=== PATIENT | male | born 1975 | race African-American/Black ===

== ENCOUNTER 2019-04-01 16:11 | Inpatient (IN) | payer MEDICAID, OTHER ==
[~2019-04-01] VITALS: Ht 167.6 cm; Wt 134.3 kg
[~2019-04-01 16:11] MED LIST: LIDOCAINE HCL/PF 1% 2ML VIAL ONE; SULF1TAB48 PO; rocephin IV
[2019-04-01] MEDS ORDERED: ACETAMINOPHEN 650MG SUPP PR STA (16:42)
[2019-04-01] MEDS ORDERED: HYDROCORTISONE SOD SUCCINATE 100 MG/2 ML VIAL IV ONE (16:45)
[2019-04-01] MEDS ORDERED: PIPERACILLIN/TAZ 3.375G PREMIX 50 ML IV ONE (16:45)
[2019-04-01] MEDS ORDERED: SODIUM CHLORIDE 0.9% 1000ML BAG (SEPSIS BOLUS) IV ONE (16:45)
[2019-04-01] MEDS ORDERED: VANCOMYCIN 1 G PREMIX 200 ML IV ONE (16:45)
[2019-04-01 17:06] LABS: BG BASE EXCESS -6.4 mmol/L (-2.0-2.0); BG DEOXYHEMOGLOBIN 4.9 % (0.0-5.0); BG FRACTION INSPIRED OXYGEN 21; BG METHEMOGLOBIN 0.2 % (0.0-1.5); BG OXYHEMOGLOBIN 93.9 % (94.0-97.0); BG PCO2 28.2 mmHg (35.0-45.0); BG PH 7.397 (7.350-7.450); BG PO2 77.6 mmHg (75.0-100.0); BG SAMPLE SITE RIGHT RADIAL; BG TOTAL HEMOGLOBIN 13.7 g/dL (12.0-18.0); BG VENT MODE ROOM AIR
[2019-04-01 17:16] LABS: HEMATOCRIT. 37.8 % (42.0-52.0); HEMOGLOBIN. 12.3 g/dL (14.0-18.0); MEAN CORPUSCULAR HEMOGLOBIN 31.6 pg (28.0-32.0); MEAN PLATELET VOLUME 10.7 fl (7.4-10.4); PLATELET 152 x1000/uL (130-400); RED CELL DISTRIBUTION WIDTH 14.7 % (11.6-14.6)
[2019-04-01 17:20] LABS: CHLORIDE 95 mEq/L (98-107)
[2019-04-01 17:21] LABS: INR 1.3; PROTHROMBIN TIME 13.7 sec (9.6-11.0)
[2019-04-01 17:38] LABS: PLATELET ESTIMATE NORMAL
[2019-04-01] MEDS ORDERED: INSULIN REGULAR (DRIP) 100 UNITS in SODIUM CHLORIDE 0.9% 99 ML IV SCH (19:00)
[2019-04-01] MEDS ORDERED: NOREPINEPHRINE 4 MG in DEXT 5% WATER 246 ML IV ONE (20:15)
[2019-04-01] MEDS ORDERED: PIPERACILLIN/TAZ 3.375G PREMIX 50 ML IV SCH (20:45)
[2019-04-01] MEDS ORDERED: NOREPINEPHRINE 4MG/250ML PMX 250 ML IV SCH ×2 (20:45)
[2019-04-01] MEDS ORDERED: ONDANSETRON HCL 4MG/2ML INJ IV PRN (20:45)
[2019-04-01 21:45] LABS: CLARITY URINE CLOUDY (CLEAR); COLOR URINE DARK YELLOW (YELLOW); KETONES URINE NEGATIVE (NEGATIVE); LEUKOCYTE ESTERASE URINE 2+ (NEGATIVE); NITRITE URINE NEGATIVE (NEGATIVE); OCCULT BLOOD URINE 2+ (NEGATIVE); PH URINE 5.5 (4.5-8.0); PROTEIN URINE 2+ (NEGATIVE); SPECIFIC GRAVITY URINE 1.019 (1.005-1.030)
[2019-04-01 23:00] VITALS: BP_SYST 122; BP_DIAS 68; BP_DIAS 72
[2019-04-01 23:15] VITALS: BP 90/78
[2019-04-01] MEDS: SODIUM CHLORIDE 0.9% 1,000 ML IV SCH (23:28)
[2019-04-01 23:30] VITALS: BP 94/67
[2019-04-02] VITALS (78 sets, daily range): BP systolic 94–147; BP diastolic 30–99
[2019-04-02] MEDS: PIPERACILLIN/TAZ 3.375G PREMIX 50 ML IV SCH ×3 (00:21→11:06)
[2019-04-02] MEDS ORDERED: INSULIN REGULAR (DRIP) 100 UNITS in SODIUM CHLORIDE 0.9% 99 ML IV PRN (01:15)
[2019-04-02] MEDS ORDERED: DEXTROSE 50% WATER 50ML SYRINGE IV PRN ×2 (01:15)
[2019-04-02] MEDS ORDERED: VANCOMYCIN 1 G PREMIX 200 ML IV NR (02:00)
[2019-04-02] MEDS: INSULIN REGULAR (DRIP) 100 UNITS in SODIUM CHLORIDE 0.9% 100 ML IV SCH ×4 (02:08→23:51)
[2019-04-02] MEDS: BLOOD SUGAR DIAGNOSTIC STRIP TEST SCH ×22 (02:14→23:04)
[2019-04-02] MEDS: SODIUM CHLORIDE 0.9% 1,000 ML IV SCH (04:12)
[2019-04-02 05:12] LABS: HEMATOCRIT. 36.1 % (42.0-52.0); HEMOGLOBIN. 11.9 g/dL (14.0-18.0); MEAN CORPUSCULAR HEMOGLOBIN 31.4 pg (28.0-32.0); MEAN CORPUSCULAR VOLUME 95.2 fL (80.0-94.0); MEAN PLATELET VOLUME 10.9 fl (7.4-10.4); PLATELET 110 x1000/uL (130-400); RED BLOOD CELL COUNT 3.79 mill/uL (4.7-6.1); RED CELL DISTRIBUTION WIDTH 14.7 % (11.6-14.6)
[2019-04-02] MEDS ORDERED: MORPHINE SULFATE 2 MG/ML CPJ (NOT FOR IM USE) IV PRN (08:15)
[2019-04-02] MEDS ORDERED: ACETAMINOPHEN 650MG SUPP PR PRN (08:15)
[2019-04-02 08:55] LABS: PLATELET ESTIMATE DECREASED
[2019-04-02] MEDS ORDERED: POTASSIUM CHLORIDE INJ 40 MEQ in DEXT 5% WATER 250 ML IV NR (09:00)
[2019-04-02] MEDS: SODIUM CHL 0.45% + KCL 20MEQ/L 1,000 ML IV SCH ×3 (09:21→23:04)
[2019-04-02] MEDS: FAMOTIDINE 20MG/2ML VIAL IV SCH (09:22)
[2019-04-02] MEDS: ENOXAPARIN 40MG/0.4ML SYR SUBCUT SCH ×2 (10:06→21:00)
[2019-04-02 10:22] LABS: PHOSPHORUS 0.8 mg/dL (2.5-4.9)
[2019-04-02] MEDS ORDERED: LORAZEPAM 2MG/ML CPJ IV PRN (12:00)
[2019-04-02] MEDS ORDERED: MAGNESIUM 4 G PREMIX 100 ML IV SCH (13:00)
[2019-04-02] MEDS ORDERED: POTASSIUM PHOS,M-BASIC-D-BASIC 30 MMOL in DEXT 5% WATER 500 ML IV NR (15:00)
[2019-04-02] MEDS ORDERED: CEFEPIME 2,000 MG in DEXT 5% WATER 100 ML IV SCH (18:00)
[2019-04-03] VITALS (79 sets, daily range): BP systolic 92–154; BP diastolic 49–99
[2019-04-03] MEDS: BLOOD SUGAR DIAGNOSTIC STRIP TEST SCH ×24 (00:15→23:06)
[2019-04-03] MEDS: DEXT 5%/0.45% NACL KCL 20MEQ/L 1,000 ML IV SCH ×3 (02:03→18:15)
[2019-04-03] MEDS ORDERED: SENN-170 MT (04:03)
[2019-04-03] MEDS ORDERED: DOCU250C69 MT (04:03)
[2019-04-03] MEDS ORDERED: FAMO20TA8 MT (04:03)
[2019-04-03] MEDS ORDERED: PHEN100C4 PO (04:03)
[2019-04-03] MEDS ORDERED: SERT50TA MT (04:03)
[2019-04-03] MEDS ORDERED: [UNRECOGNIZED DRUG - OTHER] MT (04:03)
[2019-04-03] MEDS ORDERED: METO25TA6 MT (04:03)
[2019-04-03] MEDS ORDERED: MULT1TAB63 MT (04:03)
[2019-04-03] MEDS ORDERED: CALC-959 MT (04:03)
[2019-04-03] MEDS ORDERED: DEXT1CAP3 PO (04:03)
[2019-04-03 05:57] LABS: HEMATOCRIT. 31.9 % (42.0-52.0); MEAN CORPUSCULAR HEMOGLOBIN 31.3 pg (28.0-32.0); MEAN CORPUSCULAR VOLUME 91.1 fL (80.0-94.0); MEAN PLATELET VOLUME 10.5 fl (7.4-10.4); PLATELET 96 x1000/uL (130-400); RED CELL DISTRIBUTION WIDTH 14.5 % (11.6-14.6)
[2019-04-03 06:02] LABS: CHLORIDE 115 mEq/L (98-107)
[2019-04-03 06:14] LABS: PHOSPHORUS 1.9 mg/dL (2.5-4.9)
[2019-04-03 06:18] LABS: CREATINE KINASE 66 IU/L (39-308)
[2019-04-03] MEDS: ENOXAPARIN 40MG/0.4ML SYR SUBCUT SCH ×2 (09:00→21:00)
[2019-04-03] MEDS: FAMOTIDINE 20MG/2ML VIAL IV SCH (09:24)
[2019-04-03] MEDS ORDERED: SODIUM BICARBONATE 8.4% 1 MEQ/ML 50ML SYR IV SCH (10:00)
[2019-04-03 11:00] LABS: PLATELET ESTIMATE DECREASED
[2019-04-03] MEDS ORDERED: POTASSIUM PHOS,M-BASIC-D-BASIC 20 MMOL in DEXT 5% WATER 243.3333 ML IV SCH (11:00)
[2019-04-03] MEDS: INSULIN REGULAR (DRIP) 100 UNITS in SODIUM CHLORIDE 0.9% 100 ML IV SCH (11:14)
[2019-04-03] MEDS: MEROPENEM 500 MG in SODIUM CHLORIDE 0.9% 50 ML IV SCH ×2 (15:59→21:41)
[2019-04-04] VITALS (51 sets, daily range): BP systolic 66–164; BP diastolic 52–142
[2019-04-04] MEDS: BLOOD SUGAR DIAGNOSTIC STRIP TEST SCH ×13 (00:36→21:11)
[2019-04-04] MEDS: INSULIN REGULAR (DRIP) 100 UNITS in SODIUM CHLORIDE 0.9% 100 ML IV SCH (01:17)
[2019-04-04] MEDS: DEXT 5%/0.45% NACL KCL 20MEQ/L 1,000 ML IV SCH ×2 (01:55→11:10)
[2019-04-04] MEDS: MEROPENEM 500 MG in SODIUM CHLORIDE 0.9% 50 ML IV SCH ×3 (05:15→22:16)
[2019-04-04 05:38] LABS: HEMATOCRIT. 29.6 % (42.0-52.0); MEAN CORPUSCULAR HEMOGLOBIN 31.4 pg (28.0-32.0); MEAN CORPUSCULAR VOLUME 92.7 fL (80.0-94.0); PLATELET 88 x1000/uL (130-400); RED BLOOD CELL COUNT 3.19 mill/uL (4.7-6.1)
[2019-04-04 05:50] LABS: CHLORIDE 120 mEq/L (98-107)
[2019-04-04 05:58] LABS: PHOSPHORUS 2.2 mg/dL (2.5-4.9)
[2019-04-04 08:49] LABS: PLATELET ESTIMATE DECREASED
[2019-04-04] MEDS: ENOXAPARIN 40MG/0.4ML SYR SUBCUT SCH ×2 (09:00→09:17)
[2019-04-04] MEDS: FAMOTIDINE 20MG/2ML VIAL IV SCH (09:17)
[2019-04-04] MEDS ORDERED: DEXTROSE 50% WATER 50ML SYRINGE IV PRN (09:45)
[2019-04-04] MEDS ORDERED: POTASSIUM PHOS,M-BASIC-D-BASIC 15 MMOL in DEXT 5% WATER 245 ML IV SCH (11:00)
[2019-04-04] MEDS: INSULIN LISPRO 100 UNITS/ML SUBCUT SCH ×3 (11:13→21:16)
[2019-04-04] MEDS: INSULIN GLARGINE UD 100 UNITS/ML SYR SUBCUT SCH ×2 (11:13→21:16)
[2019-04-04] MEDS: DEXTROSE 5% WATER 1,000 ML IV SCH (15:24)
[2019-04-05] VITALS (13 sets, daily range): BP systolic 130–148; BP diastolic 63–97
[2019-04-05] MEDS: MEROPENEM 500 MG in SODIUM CHLORIDE 0.9% 50 ML IV SCH ×3 (06:05→21:44)
[2019-04-05] MEDS: DEXTROSE 5% WATER 1,000 ML IV SCH ×3 (06:07→21:28)
[2019-04-05] MEDS: BLOOD SUGAR DIAGNOSTIC STRIP TEST SCH ×4 (06:59→21:27)
[2019-04-05 07:14] LABS: HEMATOCRIT. 27.2 % (42.0-52.0); HEMOGLOBIN. 9.3 g/dL (14.0-18.0); MEAN CORPUSCULAR HEMOGLOBIN 31.4 pg (28.0-32.0); MEAN CORPUSCULAR VOLUME 92.2 fL (80.0-94.0); MEAN PLATELET VOLUME 10.4 fl (7.4-10.4); PLATELET 100 x1000/uL (130-400); RED BLOOD CELL COUNT 2.95 mill/uL (4.7-6.1)
[2019-04-05 07:17] LABS: PHOSPHORUS 2.9 mg/dL (2.5-4.9)
[2019-04-05] MEDS: FAMOTIDINE 20MG/2ML VIAL IV SCH (08:05)
[2019-04-05] MEDS: INSULIN LISPRO 100 UNITS/ML SUBCUT SCH ×4 (08:06→21:00)
[2019-04-05] MEDS: INSULIN GLARGINE UD 100 UNITS/ML SYR SUBCUT SCH ×2 (10:10→21:45)
[2019-04-05 16:41] LABS: TOTAL IRON BINDING CAPACITY 84 ug/dL (250-450)
[2019-04-05 18:47] LABS: FOLIC ACID (FOLATE) SERUM 3.8 ng/mL (>5.38)
[2019-04-05 22:48] LABS: PLATELET ESTIMATE DECREASED
[2019-04-06] VITALS (7 sets, daily range): BP systolic 110–158; BP diastolic 59–86
[2019-04-06] MEDS: ACETAMINOPHEN 325MG TABLET PO PRN ×2 (02:58→21:49)
[2019-04-06] MEDS: MEROPENEM 500 MG in SODIUM CHLORIDE 0.9% 50 ML IV SCH (05:45)
[2019-04-06] MEDS: BLOOD SUGAR DIAGNOSTIC STRIP TEST SCH ×4 (06:48→21:05)
[2019-04-06] MEDS: INSULIN LISPRO 100 UNITS/ML SUBCUT SCH ×4 (06:48→21:05)
[2019-04-06] MEDS: FAMOTIDINE 20MG/2ML VIAL IV SCH (09:15)
[2019-04-06] MEDS: INSULIN GLARGINE UD 100 UNITS/ML SYR SUBCUT SCH ×2 (09:31→21:05)
[2019-04-06 10:09] LABS: PHOSPHORUS 3.8 mg/dL (2.5-4.9)
[2019-04-06 10:10] LABS: BASOPHILS % 0.2 % (0.0-2.0); EOSINOPHILS % 0.4 % (0.0-5.0); HEMOGLOBIN. 8.7 g/dL (14.0-18.0); LYMPHOCYTES % 15.8 % (20.0-50.0); MEAN CORPUSCULAR HEMOGLOBIN 31.2 pg (28.0-32.0); MEAN PLATELET VOLUME 10.2 fl (7.4-10.4); MONOCYTES % 13.8 % (2.0-8.0); NEUTROPHILS % 69.8 % (40.0-76.0); PLATELET 141 x1000/uL (130-400); RED CELL DISTRIBUTION WIDTH 14.9 % (11.6-14.6)
[2019-04-06] MEDS: MEROPENEM 1000MG in NORMAL SALINE 100ML IV SCH ×2 (14:31→21:04)
[2019-04-06] MEDS: DEXTROSE 5% WATER 1,000 ML IV SCH (17:50)
[2019-04-07] VITALS: BP 106/52
[2019-04-07 04:00] VITALS: BP 111/66
[2019-04-07] MEDS: BLOOD SUGAR DIAGNOSTIC STRIP TEST SCH ×4 (05:57→21:00)
[2019-04-07] MEDS: MEROPENEM 1000MG in NORMAL SALINE 100ML IV SCH ×3 (06:07→21:26)
[2019-04-07 07:08] LABS: HEMATOCRIT. 25.8 % (42.0-52.0); HEMOGLOBIN. 8.5 g/dL (14.0-18.0); MEAN CORPUSCULAR VOLUME 93.6 fL (80.0-94.0); MEAN PLATELET VOLUME 10.3 fl (7.4-10.4); PLATELET 186 x1000/uL (130-400); RED BLOOD CELL COUNT 2.76 mill/uL (4.7-6.1); RED CELL DISTRIBUTION WIDTH 14.9 % (11.6-14.6)
[2019-04-07] MEDS: INSULIN LISPRO 100 UNITS/ML SUBCUT SCH ×4 (07:40→21:27)
[2019-04-07 08:32] LABS: PHOSPHORUS 3.9 mg/dL (2.5-4.9)
[2019-04-07] MEDS: FAMOTIDINE 20MG TABLET PO SCH (09:21)
[2019-04-07] MEDS: DEXTROSE 5% WATER 1,000 ML IV SCH (09:21)
[2019-04-07] MEDS: INSULIN GLARGINE UD 100 UNITS/ML SYR SUBCUT SCH ×2 (09:22→21:26)
[2019-04-07] MEDS ORDERED: BISACODYL 10MG SUPP PR PRN (11:30)
[2019-04-07] MEDS ORDERED: MAGNESIUM HYDROXIDE 400MG/5ML 30ML UDC PO PRN (11:30)
[2019-04-07 12:00] VITALS: BP 136/84
[2019-04-07 12:24] LABS: HEPATITIS B SURFACE ANTIGEN NEGATIVE
[2019-04-07 12:54] LABS: HEPATITIS A AB IGM NEGATIVE (NEGATIVE)
[2019-04-07 15:54] LABS: PLATELET ESTIMATE NORMAL
[2019-04-07 16:00] VITALS: BP 126/81
[2019-04-07] MEDS: DOCUSATE SODIUM 100MG CAPSULE PO SCH (17:24)
[2019-04-07] MEDS ORDERED: POLYETHYLENE GLYCOL 3350 (17GM) 1 DOSE PACK PO NR (17:45)
[2019-04-07 20:00] VITALS: BP 116/86
[2019-04-07] MEDS: ACETAMINOPHEN 325MG TABLET PO PRN (21:25)
[2019-04-08] VITALS: BP 133/72
[2019-04-08] MEDS: DEXTROSE 5% WATER 1,000 ML IV SCH ×2 (00:22→10:20)
[2019-04-08 04:00] VITALS: BP 121/84
[2019-04-08 05:16] LABS: HIV SCREEN 4G Non Reactive (Non Reactive)
[2019-04-08] MEDS: MEROPENEM 1000MG in NORMAL SALINE 100ML IV SCH ×3 (05:42→21:30)
[2019-04-08] MEDS: BLOOD SUGAR DIAGNOSTIC STRIP TEST SCH ×4 (06:22→20:34)
[2019-04-08] MEDS: INSULIN LISPRO 100 UNITS/ML SUBCUT SCH ×4 (06:22→20:34)
[2019-04-08 06:27] LABS: PHOSPHORUS 4.3 mg/dL (2.5-4.9)
[2019-04-08 06:28] LABS: HEMOGLOBIN. 8.4 g/dL (14.0-18.0); MEAN CORPUSCULAR HEMOGLOBIN 31.2 pg (28.0-32.0); MEAN CORPUSCULAR VOLUME 93.1 fL (80.0-94.0); MEAN PLATELET VOLUME 9.8 fl (7.4-10.4); PLATELET 263 x1000/uL (130-400); RED BLOOD CELL COUNT 2.68 mill/uL (4.7-6.1); RED CELL DISTRIBUTION WIDTH 14.3 % (11.6-14.6)
[2019-04-08 08:00] VITALS: BP 130/70
[2019-04-08] MEDS: DOCUSATE SODIUM 100MG CAPSULE PO SCH ×2 (09:00→17:00)
[2019-04-08] MEDS: FAMOTIDINE 20MG TABLET PO SCH (09:00)
[2019-04-08] MEDS: INSULIN GLARGINE UD 100 UNITS/ML SYR SUBCUT SCH ×2 (10:04→21:32)
[2019-04-08] MEDS ORDERED: IOPAMIDOL 20 ML VIAL IT ONE (12:51)
[2019-04-08] MEDS ORDERED: MIDAZOLAM HCL 2 MG/2 ML VIAL ONE (13:00)
[2019-04-08] MEDS ORDERED: PROPOFOL 200MG/20ML VIAL IV ONE (13:00)
[2019-04-08] MEDS ORDERED: FENTANYL CITRATE/PF 50MCG/ML 2ML VIAL ONE ×2 (13:15→13:37)
[2019-04-08] MEDS ORDERED: ONDANSETRON HCL 4MG/2ML INJ ONE (13:44)
[2019-04-08] MEDS ORDERED: METOCLOPRAMIDE HCL 10MG/2ML VIAL ONE (13:44)
[2019-04-08] MEDS ORDERED: SODIUM CHLORIDE 0.9% 1,000 ML IV ONE (13:58)
[2019-04-08] MEDS ORDERED: ONDANSETRON HCL 4MG/2ML INJ IV PRN (14:00)
[2019-04-08] MEDS ORDERED: HYDROMORPHONE HCL/PF 2MG/ML CPJ IV PRN (14:00)
[2019-04-08 16:30] VITALS: BP 160/89
[2019-04-08 16:57] LABS: PLATELET ESTIMATE NORMAL
[2019-04-08 20:00] VITALS: BP 128/67
[2019-04-09] VITALS: BP 113/63
[2019-04-09 04:00] VITALS: BP 156/65
[2019-04-09] MEDS: MEROPENEM 1000MG in NORMAL SALINE 100ML IV SCH ×3 (05:44→22:14)
[2019-04-09] MEDS: DEXTROSE 5% WATER 1,000 ML IV SCH ×2 (05:45→12:55)
[2019-04-09 06:14] LABS: HEMATOCRIT. 25.3 % (42.0-52.0); HEMOGLOBIN. 8.6 g/dL (14.0-18.0); MEAN CORPUSCULAR HEMOGLOBIN 31.5 pg (28.0-32.0); MEAN CORPUSCULAR VOLUME 92.7 fL (80.0-94.0); MEAN PLATELET VOLUME 9.4 fl (7.4-10.4); PLATELET 331 x1000/uL (130-400); RED BLOOD CELL COUNT 2.72 mill/uL (4.7-6.1); RED CELL DISTRIBUTION WIDTH 14.4 % (11.6-14.6)
[2019-04-09 06:35] LABS: CHLORIDE 113 mEq/L (98-107)
[2019-04-09 06:44] LABS: PHOSPHORUS 4.7 mg/dL (2.5-4.9)
[2019-04-09] MEDS: BLOOD SUGAR DIAGNOSTIC STRIP TEST SCH ×4 (07:04→21:00)
[2019-04-09] MEDS: INSULIN LISPRO 100 UNITS/ML SUBCUT SCH ×4 (07:04→21:00)
[2019-04-09 09:00] VITALS: BP 124/66
[2019-04-09] MEDS: DOCUSATE SODIUM 100MG CAPSULE PO SCH ×2 (09:38→17:00)
[2019-04-09] MEDS: FAMOTIDINE 20MG TABLET PO SCH (09:38)
[2019-04-09] MEDS: INSULIN GLARGINE UD 100 UNITS/ML SYR SUBCUT SCH ×2 (09:40→22:15)
[2019-04-09 10:31] LABS: PLATELET ESTIMATE NORMAL
[2019-04-09] MEDS ORDERED: SODIUM POLYSTYRENE SULFONATE 15 G/60 ML BOT PO NR (12:00)
[2019-04-09 12:43] VITALS: BP 126/76
[2019-04-09 17:30] VITALS: BP 120/68
[2019-04-10] VITALS: BP 128/80
[2019-04-10] MEDS: DEXTROSE 5% WATER 1,000 ML IV SCH ×2 (03:09→18:29)
[2019-04-10 04:00] VITALS: BP 129/71
[2019-04-10 05:54] LABS: CHLORIDE 112 mEq/L (98-107)
[2019-04-10 06:02] LABS: HEMATOCRIT. 24.3 % (42.0-52.0); HEMOGLOBIN. 8.1 g/dL (14.0-18.0); MEAN CORPUSCULAR HEMOGLOBIN 31.1 pg (28.0-32.0); MEAN CORPUSCULAR VOLUME 93.5 fL (80.0-94.0); MEAN PLATELET VOLUME 9.3 fl (7.4-10.4); PLATELET 373 x1000/uL (130-400); RED CELL DISTRIBUTION WIDTH 14.1 % (11.6-14.6)
[2019-04-10 06:05] LABS: PHOSPHORUS 4.7 mg/dL (2.5-4.9)
[2019-04-10] MEDS: MEROPENEM 1000MG in NORMAL SALINE 100ML IV SCH ×3 (06:06→21:19)
[2019-04-10] MEDS: BLOOD SUGAR DIAGNOSTIC STRIP TEST SCH ×4 (06:22→21:00)
[2019-04-10] MEDS: INSULIN LISPRO 100 UNITS/ML SUBCUT SCH ×4 (06:22→21:00)
[2019-04-10 08:00] VITALS: BP 124/69
[2019-04-10] MEDS: DOCUSATE SODIUM 100MG CAPSULE PO SCH ×2 (09:46→17:00)
[2019-04-10] MEDS: FAMOTIDINE 20MG TABLET PO SCH (09:46)
[2019-04-10] MEDS: INSULIN GLARGINE UD 100 UNITS/ML SYR SUBCUT SCH ×2 (11:13→21:24)
[2019-04-10 12:00] VITALS: BP 108/62
[2019-04-10 13:18] LABS: PLATELET ESTIMATE NORMAL
[2019-04-10 16:00] VITALS: BP 109/67
[2019-04-10 16:37] LABS: CLARITY URINE CLOUDY (CLEAR); COLOR URINE RED (YELLOW); KETONES URINE NEGATIVE (NEGATIVE); LEUKOCYTE ESTERASE URINE 3+ (NEGATIVE); NITRITE URINE NEGATIVE (NEGATIVE); OCCULT BLOOD URINE 3+ (NEGATIVE); PH URINE 5.5 (4.5-8.0); PROTEIN URINE 2+ (NEGATIVE); SPECIFIC GRAVITY URINE 1.009 (1.005-1.030); UROBILINOGEN URINE 0.2 E.U./dL (0.2-1.0)
[2019-04-10 20:22] VITALS: BP 112/57
[2019-04-11 00:20] VITALS: BP 98/53
[2019-04-11 04:00] VITALS: BP 118/66
[2019-04-11] MEDS: DEXTROSE 5% WATER 1,000 ML IV SCH ×2 (06:19→22:39)
[2019-04-11] MEDS: MEROPENEM 1000MG in NORMAL SALINE 100ML IV SCH ×3 (06:19→22:04)
[2019-04-11] MEDS: BLOOD SUGAR DIAGNOSTIC STRIP TEST SCH ×4 (06:37→21:00)
[2019-04-11] MEDS: INSULIN LISPRO 100 UNITS/ML SUBCUT SCH ×4 (06:37→21:00)
[2019-04-11] MEDS: DOCUSATE SODIUM 100MG CAPSULE PO SCH ×2 (09:32→17:49)
[2019-04-11] MEDS: FAMOTIDINE 20MG TABLET PO SCH (09:32)
[2019-04-11] MEDS: INSULIN GLARGINE UD 100 UNITS/ML SYR SUBCUT SCH ×2 (09:35→22:08)
[2019-04-11 12:00] VITALS: BP 119/69
[2019-04-11 16:01] LABS: BASOPHILS % 0.1 % (0.0-2.0); EOSINOPHILS % 0.1 % (0.0-5.0); HEMATOCRIT. 25.4 % (42.0-52.0); HEMOGLOBIN. 8.4 g/dL (14.0-18.0); LYMPHOCYTES % 13.1 % (20.0-50.0); MEAN CORPUSCULAR HEMOGLOBIN 30.8 pg (28.0-32.0); MONOCYTES % 6.3 % (2.0-8.0); NEUTROPHILS % 80.4 % (40.0-76.0); PLATELET 446 x1000/uL (130-400); RED BLOOD CELL COUNT 2.73 mill/uL (4.7-6.1); RED CELL DISTRIBUTION WIDTH 13.6 % (11.6-14.6)
[2019-04-11 16:04] VITALS: BP 112/66
[2019-04-11 16:08] LABS: CHLORIDE 110 mEq/L (98-107)
[2019-04-11 20:00] VITALS: BP 114/55
[2019-04-12] VITALS: BP 100/59
[2019-04-12 04:00] VITALS: BP 100/58
[2019-04-12] MEDS: MEROPENEM 1000MG in NORMAL SALINE 100ML IV SCH ×3 (05:49→21:09)
[2019-04-12 06:13] LABS: BASOPHILS % 0.1 % (0.0-2.0); EOSINOPHILS % 0.1 % (0.0-5.0); HEMATOCRIT. 22.9 % (42.0-52.0); HEMOGLOBIN. 7.7 g/dL (14.0-18.0); LYMPHOCYTES % 14.1 % (20.0-50.0); MEAN CORPUSCULAR VOLUME 92.1 fL (80.0-94.0); MEAN PLATELET VOLUME 8.7 fl (7.4-10.4); MONOCYTES % 6.9 % (2.0-8.0); NEUTROPHILS % 78.8 % (40.0-76.0); PLATELET 452 x1000/uL (130-400); RED BLOOD CELL COUNT 2.49 mill/uL (4.7-6.1); RED CELL DISTRIBUTION WIDTH 13.7 % (11.6-14.6)
[2019-04-12 06:40] LABS: CHLORIDE 107 mEq/L (98-107)
[2019-04-12] MEDS: BLOOD SUGAR DIAGNOSTIC STRIP TEST SCH ×4 (06:42→21:06)
[2019-04-12] MEDS: INSULIN LISPRO 100 UNITS/ML SUBCUT SCH ×4 (06:44→21:00)
[2019-04-12 06:46] LABS: PHOSPHORUS 4.2 mg/dL (2.5-4.9)
[2019-04-12 08:00] VITALS: BP 110/60
[2019-04-12] MEDS ORDERED: SODIUM BICARBONATE 4% (2.4MEQ) 5ML VIAL IV ONE (09:26)
[2019-04-12] MEDS ORDERED: LIDOCAINE HCL 1% 20ML VIAL (Pyxis) INJ ONE (09:27)
[2019-04-12] MEDS: DOCUSATE SODIUM 100MG CAPSULE PO SCH ×2 (09:29→16:41)
[2019-04-12] MEDS: FAMOTIDINE 20MG TABLET PO SCH (09:29)
[2019-04-12] MEDS ORDERED: MAGNESIUM 2 G PREMIX 50 ML IV SCH (09:30)
[2019-04-12] MEDS: DEXTROSE 5% WATER 1,000 ML IV SCH (09:31)
[2019-04-12] MEDS: INSULIN GLARGINE UD 100 UNITS/ML SYR SUBCUT SCH ×2 (11:20→21:16)
[2019-04-12 16:00] VITALS: BP_SYST 121; BP_SYST 125; BP_DIAS 71; BP_DIAS 72
[2019-04-12 20:29] VITALS: BP 119/62
[2019-04-13 00:49] VITALS: BP 101/58
[2019-04-13 04:00] VITALS: BP 97/58
[2019-04-13] MEDS: BLOOD SUGAR DIAGNOSTIC STRIP TEST SCH ×4 (05:53→20:36)
[2019-04-13] MEDS: INSULIN LISPRO 100 UNITS/ML SUBCUT SCH ×4 (05:53→20:36)
[2019-04-13 06:28] LABS: CHLORIDE 109 mEq/L (98-107)
[2019-04-13 06:38] LABS: PHOSPHORUS 3.9 mg/dL (2.5-4.9)
[2019-04-13 07:13] LABS: BASOPHILS % 0.3 % (0.0-2.0); EOSINOPHILS % 0.1 % (0.0-5.0); HEMATOCRIT. 24.7 % (42.0-52.0); HEMOGLOBIN. 8.2 g/dL (14.0-18.0); LYMPHOCYTES % 14.4 % (20.0-50.0); MEAN CORPUSCULAR HEMOGLOBIN 30.9 pg (28.0-32.0); MEAN CORPUSCULAR VOLUME 92.7 fL (80.0-94.0); MEAN PLATELET VOLUME 8.9 fl (7.4-10.4); MONOCYTES % 7.2 % (2.0-8.0); PLATELET 511 x1000/uL (130-400); RED BLOOD CELL COUNT 2.67 mill/uL (4.7-6.1); RED CELL DISTRIBUTION WIDTH 13.6 % (11.6-14.6)
[2019-04-13 08:00] VITALS: BP 116/74
[2019-04-13] MEDS: FAMOTIDINE 20MG TABLET PO SCH (09:23)
[2019-04-13] MEDS: DOCUSATE SODIUM 100MG CAPSULE PO SCH ×2 (09:23→18:53)
[2019-04-13 12:00] VITALS: BP 126/71
[2019-04-13] MEDS: MEROPENEM 1000MG in NORMAL SALINE 100ML IV SCH (14:00)
[2019-04-13] MEDS: INSULIN GLARGINE UD 100 UNITS/ML SYR SUBCUT SCH ×2 (14:09→22:51)
[2019-04-13 16:00] VITALS: BP 123/64
[2019-04-13 20:00] VITALS: BP 119/61
[2019-04-14] VITALS: BP 115/69
[2019-04-14 04:00] VITALS: BP 110/67
[2019-04-14] MEDS: BLOOD SUGAR DIAGNOSTIC STRIP TEST SCH ×4 (05:55→21:00)
[2019-04-14] MEDS: INSULIN LISPRO 100 UNITS/ML SUBCUT SCH ×4 (05:55→21:00)
[2019-04-14] MEDS ORDERED: MEROPENEM 1000MG in NORMAL SALINE 100ML IV SCH (06:00)
[2019-04-14 06:54] LABS: BASOPHILS % 0.4 % (0.0-2.0); EOSINOPHILS % 0.1 % (0.0-5.0); HEMATOCRIT. 24.7 % (42.0-52.0); HEMOGLOBIN. 8.4 g/dL (14.0-18.0); LYMPHOCYTES % 19.3 % (20.0-50.0); MEAN CORPUSCULAR HEMOGLOBIN 31.1 pg (28.0-32.0); MEAN CORPUSCULAR VOLUME 91.8 fL (80.0-94.0); MEAN PLATELET VOLUME 8.6 fl (7.4-10.4); MONOCYTES % 6.8 % (2.0-8.0); NEUTROPHILS % 73.4 % (40.0-76.0); PLATELET 539 x1000/uL (130-400); RED BLOOD CELL COUNT 2.69 mill/uL (4.7-6.1); RED CELL DISTRIBUTION WIDTH 13.3 % (11.6-14.6)
[2019-04-14 07:53] LABS: CHLORIDE 107 mEq/L (98-107)
[2019-04-14 07:58] LABS: PHOSPHORUS 3.5 mg/dL (2.5-4.9)
[2019-04-14 08:30] VITALS: BP 117/78
[2019-04-14] MEDS: FAMOTIDINE 20MG TABLET PO SCH (09:30)
[2019-04-14] MEDS: DOCUSATE SODIUM 100MG CAPSULE PO SCH ×2 (09:30→16:40)
[2019-04-14] MEDS: INSULIN GLARGINE UD 100 UNITS/ML SYR SUBCUT SCH ×2 (09:31→22:34)
[2019-04-14 12:00] VITALS: BP 137/77
[2019-04-14 16:00] VITALS: BP 136/80
[2019-04-14 20:00] VITALS: BP 110/69
[2019-04-15] VITALS: BP 117/70
[2019-04-15 04:00] VITALS: BP 113/68
[2019-04-15 05:47] LABS: BASOPHILS % 0.6 % (0.0-2.0); EOSINOPHILS % 0.1 % (0.0-5.0); HEMATOCRIT. 23.5 % (42.0-52.0); HEMOGLOBIN. 8.2 g/dL (14.0-18.0); LYMPHOCYTES % 20.8 % (20.0-50.0); MEAN CORPUSCULAR HEMOGLOBIN 31.7 pg (28.0-32.0); MEAN PLATELET VOLUME 8.3 fl (7.4-10.4); MONOCYTES % 8.1 % (2.0-8.0); NEUTROPHILS % 70.4 % (40.0-76.0); PLATELET 527 x1000/uL (130-400); RED BLOOD CELL COUNT 2.59 mill/uL (4.7-6.1); RED CELL DISTRIBUTION WIDTH 13.4 % (11.6-14.6)
[2019-04-15 05:50] LABS: CHLORIDE 107 mEq/L (98-107)
[2019-04-15] MEDS: BLOOD SUGAR DIAGNOSTIC STRIP TEST SCH ×4 (05:52→21:33)
[2019-04-15] MEDS: INSULIN LISPRO 100 UNITS/ML SUBCUT SCH ×4 (05:52→21:00)
[2019-04-15 05:55] LABS: PHOSPHORUS 4.3 mg/dL (2.5-4.9)
[2019-04-15 08:00] VITALS: BP 114/67
[2019-04-15] MEDS: INSULIN GLARGINE UD 100 UNITS/ML SYR SUBCUT SCH ×2 (09:29→21:46)
[2019-04-15] MEDS: DOCUSATE SODIUM 100MG CAPSULE PO SCH ×3 (09:29→18:41)
[2019-04-15] MEDS: FAMOTIDINE 20MG TABLET PO SCH (09:29)
[2019-04-15] MEDS: DEXTROSE 5% WATER 1,000 ML IV SCH (09:53)
[2019-04-15 12:00] VITALS: BP 116/66
[2019-04-15 15:52] VITALS: BP 119/69
[2019-04-15] MEDS ORDERED: HYDROCODONE/ACETAMINOPHEN 5/325MG TABLET PO PRN (19:00)
[2019-04-15 20:00] VITALS: BP 115/65
[2019-04-16] VITALS: BP 117/61
[2019-04-16] MEDS: MEROPENEM 500 MG in SODIUM CHLORIDE 0.9% 50 ML IV SCH ×3 (02:00→18:42)
[2019-04-16 04:00] VITALS: BP 107/73
[2019-04-16 05:54] LABS: CHLORIDE 106 mEq/L (98-107)
[2019-04-16 06:09] LABS: PHOSPHORUS 4.2 mg/dL (2.5-4.9)
[2019-04-16 06:27] LABS: BASOPHILS % 0.6 % (0.0-2.0); EOSINOPHILS % 0.1 % (0.0-5.0); MEAN CORPUSCULAR HEMOGLOBIN 31.4 pg (28.0-32.0); MEAN CORPUSCULAR VOLUME 90.6 fL (80.0-94.0); MEAN PLATELET VOLUME 8.4 fl (7.4-10.4); MONOCYTES % 8.3 % (2.0-8.0); PLATELET 508 x1000/uL (130-400); RED BLOOD CELL COUNT 2.54 mill/uL (4.7-6.1); RED CELL DISTRIBUTION WIDTH 13.4 % (11.6-14.6)
[2019-04-16] MEDS: BLOOD SUGAR DIAGNOSTIC STRIP TEST SCH ×4 (07:12→21:18)
[2019-04-16] MEDS: INSULIN LISPRO 100 UNITS/ML SUBCUT SCH ×4 (07:13→21:00)
[2019-04-16 08:00] VITALS: BP 115/65
[2019-04-16] MEDS ORDERED: MAGNESIUM 4 G PREMIX 100 ML IV ONE (09:00)
[2019-04-16] MEDS: FAMOTIDINE 20MG TABLET PO SCH (09:26)
[2019-04-16] MEDS: INSULIN GLARGINE UD 100 UNITS/ML SYR SUBCUT SCH ×2 (09:27→21:21)
[2019-04-16 12:00] VITALS: BP 100/64
[2019-04-16 16:00] VITALS: BP_SYST 104; BP_SYST 113; BP_DIAS 55; BP_DIAS 66
[2019-04-16] MEDS: DOCUSATE SODIUM 100MG CAPSULE PO SCH (17:00)
[2019-04-16 20:00] VITALS: BP 110/67
[2019-04-17] VITALS: BP 102/57
[2019-04-17] MEDS: MEROPENEM 500 MG in SODIUM CHLORIDE 0.9% 50 ML IV SCH (02:00)
[2019-04-17 04:00] VITALS: BP 118/60
[2019-04-17] MEDS: INSULIN LISPRO 100 UNITS/ML SUBCUT SCH ×4 (06:17→21:00)
[2019-04-17] MEDS: BLOOD SUGAR DIAGNOSTIC STRIP TEST SCH ×4 (06:17→21:52)
[2019-04-17 07:07] LABS: BASOPHILS % 0.3 % (0.0-2.0); EOSINOPHILS % 0.1 % (0.0-5.0); HEMATOCRIT. 25.2 % (42.0-52.0); HEMOGLOBIN. 8.4 g/dL (14.0-18.0); LYMPHOCYTES % 21.5 % (20.0-50.0); MEAN CORPUSCULAR VOLUME 90.4 fL (80.0-94.0); MEAN PLATELET VOLUME 8.6 fl (7.4-10.4); MONOCYTES % 8.3 % (2.0-8.0); NEUTROPHILS % 69.8 % (40.0-76.0); PLATELET 543 x1000/uL (130-400); RED BLOOD CELL COUNT 2.79 mill/uL (4.7-6.1); RED CELL DISTRIBUTION WIDTH 13.2 % (11.6-14.6)
[2019-04-17 07:55] LABS: CHLORIDE 104 mEq/L (98-107)
[2019-04-17 08:00] LABS: PHOSPHORUS 4.3 mg/dL (2.5-4.9)
[2019-04-17 08:49] VITALS: BP 124/69
[2019-04-17] MEDS: FAMOTIDINE 20MG TABLET PO SCH (09:00)
[2019-04-17] MEDS: INSULIN GLARGINE UD 100 UNITS/ML SYR SUBCUT SCH ×2 (11:12→21:56)
[2019-04-17 12:00] VITALS: BP 142/68
[2019-04-17 16:45] VITALS: BP 110/60
[2019-04-17 20:41] VITALS: BP 106/60
[2019-04-18 00:37] VITALS: BP 109/61
[2019-04-18 04:00] VITALS: BP 111/58
[2019-04-18] MEDS: INSULIN LISPRO 100 UNITS/ML SUBCUT SCH ×4 (07:01→21:00)
[2019-04-18] MEDS: BLOOD SUGAR DIAGNOSTIC STRIP TEST SCH ×4 (07:01→21:24)
[2019-04-18 08:02] LABS: BASOPHILS % 0.3 % (0.0-2.0); EOSINOPHILS % 0.1 % (0.0-5.0); HEMATOCRIT. 29.2 % (42.0-52.0); HEMOGLOBIN. 9.9 g/dL (14.0-18.0); LYMPHOCYTES % 18.2 % (20.0-50.0); MEAN CORPUSCULAR HEMOGLOBIN 30.4 pg (28.0-32.0); MEAN CORPUSCULAR VOLUME 89.6 fL (80.0-94.0); MEAN PLATELET VOLUME 8.2 fl (7.4-10.4); MONOCYTES % 8.2 % (2.0-8.0); NEUTROPHILS % 73.2 % (40.0-76.0); PLATELET 595 x1000/uL (130-400); RED BLOOD CELL COUNT 3.26 mill/uL (4.7-6.1); RED CELL DISTRIBUTION WIDTH 13.5 % (11.6-14.6)
[2019-04-18 08:08] LABS: CHLORIDE 104 mEq/L (98-107)
[2019-04-18 08:16] LABS: PHOSPHORUS 4.7 mg/dL (2.5-4.9)
[2019-04-18 08:39] VITALS: BP 114/71
[2019-04-18] MEDS: FAMOTIDINE 20MG TABLET PO SCH (08:52)
[2019-04-18] MEDS: INSULIN GLARGINE UD 100 UNITS/ML SYR SUBCUT SCH ×2 (10:16→21:24)
[2019-04-18 12:30] VITALS: BP 129/71
[2019-04-18 16:12] VITALS: BP 119/79
[2019-04-18 20:00] VITALS: BP 103/61
[2019-04-19] VITALS: BP 109/67
[2019-04-19 04:00] VITALS: BP 107/66
[2019-04-19] MEDS: BLOOD SUGAR DIAGNOSTIC STRIP TEST SCH ×4 (07:10→20:56)
[2019-04-19 07:33] LABS: CHLORIDE 104 mEq/L (98-107)
[2019-04-19 07:36] LABS: BASOPHILS % 0.4 % (0.0-2.0); EOSINOPHILS % 0.2 % (0.0-5.0); HEMOGLOBIN. 9.2 g/dL (14.0-18.0); LYMPHOCYTES % 23.3 % (20.0-50.0); MEAN CORPUSCULAR HEMOGLOBIN 30.9 pg (28.0-32.0); MEAN CORPUSCULAR VOLUME 90.1 fL (80.0-94.0); MEAN PLATELET VOLUME 8.1 fl (7.4-10.4); MONOCYTES % 12.6 % (2.0-8.0); NEUTROPHILS % 63.5 % (40.0-76.0); PLATELET 468 x1000/uL (130-400); RED BLOOD CELL COUNT 2.99 mill/uL (4.7-6.1); RED CELL DISTRIBUTION WIDTH 13.8 % (11.6-14.6)
[2019-04-19 07:37] LABS: PHOSPHORUS 3.9 mg/dL (2.5-4.9)
[2019-04-19] MEDS: INSULIN LISPRO 100 UNITS/ML SUBCUT SCH ×4 (07:40→20:56)
[2019-04-19 08:00] VITALS: BP 101/58
[2019-04-19] MEDS: INSULIN GLARGINE UD 100 UNITS/ML SYR SUBCUT SCH ×2 (10:04→21:28)
[2019-04-19] MEDS: FAMOTIDINE 20MG TABLET PO SCH (10:04)
[2019-04-19 12:00] VITALS: BP 103/61
[2019-04-19 16:00] VITALS: BP 96/57
[2019-04-19 19:37] VITALS: BP 107/71
[2019-04-20] VITALS (7 sets, daily range): BP systolic 99–124; BP diastolic 61–68
[2019-04-20] MEDS: INSULIN LISPRO 100 UNITS/ML SUBCUT SCH ×4 (05:51→20:17)
[2019-04-20] MEDS: BLOOD SUGAR DIAGNOSTIC STRIP TEST SCH ×4 (05:52→20:17)
[2019-04-20 09:24] LABS: CHLORIDE 103 mEq/L (98-107)
[2019-04-20] MEDS: INSULIN GLARGINE UD 100 UNITS/ML SYR SUBCUT SCH (09:25)
[2019-04-20 09:29] LABS: PHOSPHORUS 4.6 mg/dL (2.5-4.9)
[2019-04-20] MEDS: FAMOTIDINE 20MG TABLET PO SCH (09:29)
[2019-04-20 09:32] LABS: BASOPHILS % 0.4 % (0.0-2.0); EOSINOPHILS % 0.1 % (0.0-5.0); HEMATOCRIT. 27.6 % (42.0-52.0); HEMOGLOBIN. 9.3 g/dL (14.0-18.0); LYMPHOCYTES % 21.9 % (20.0-50.0); MEAN CORPUSCULAR HEMOGLOBIN 30.4 pg (28.0-32.0); MEAN CORPUSCULAR VOLUME 90.2 fL (80.0-94.0); MEAN PLATELET VOLUME 8.3 fl (7.4-10.4); MONOCYTES % 12.7 % (2.0-8.0); NEUTROPHILS % 64.9 % (40.0-76.0); PLATELET 440 x1000/uL (130-400); RED BLOOD CELL COUNT 3.06 mill/uL (4.7-6.1); RED CELL DISTRIBUTION WIDTH 13.5 % (11.6-14.6)
[2019-04-20] MEDS ORDERED: MAGNESIUM OXIDE 400MG TABLET PO SCH (14:00)
[2019-04-20] MEDS ORDERED: MAGNESIUM 2 G PREMIX 50 ML IV SCH (16:00)
== END 2019-04-20 23:18 | DRG 720 ==
LOC: ER 16:11 → MICUSO 18:58 → EDBEDREQSVC 19:00 → EDBEDREQTM 19:00 → EDBEDREQ 19:00 → ENRESERV 21:13 → 3WST 04-04 13:58 → 8WST 04-06 02:47
PROVIDERS: ADMIT Internal Medicine; ATTEND Internal Medicine
PROC: 0T778DZ Dilation of Left Ureter with Intraluminal Device, Via Natural or Artificial Opening Endoscopic (ICD-10-PCS; principal; 2019-04-08)
DX: A41.50 Gram-negative sepsis, unspecified (principal); N17.0 Acute kidney failure with tubular necrosis; E11.01 Type 2 diabetes mellitus with hyperosmolarity with coma; G82.50 Quadriplegia, unspecified; E43 Unspecified severe protein-calorie malnutrition; G93.40 Encephalopathy, unspecified; E87.2 Acidosis; D69.6 Thrombocytopenia, unspecified; E66.01 Morbid (severe) obesity due to excess calories; N13.30 Unspecified hydronephrosis; B96.89 Other specified bacterial agents as the cause of diseases classified elsewhere; R65.20 Severe sepsis without septic shock; E83.39 Other disorders of phosphorus metabolism; B96.1 Klebsiella pneumoniae [K. pneumoniae] as the cause of diseases classified elsewhere; E87.5 Hyperkalemia; E87.0 Hyperosmolality and hypernatremia; E87.8 Other disorders of electrolyte and fluid balance, not elsewhere classified; F03.90 Unspecified dementia, unspecified severity, without behavioral disturbance, psychotic disturbance, mood disturbance, and anxiety; D63.8 Anemia in other chronic diseases classified elsewhere; I10 Essential (primary) hypertension; E87.1 Hypo-osmolality and hyponatremia; E87.6 Hypokalemia; F20.9 Schizophrenia, unspecified; G40.909 Epilepsy, unspecified, not intractable, without status epilepticus; N39.0 Urinary tract infection, site not specified; Z88.9 Allergy status to unspecified drugs, medicaments and biological substances; Z87.820 Personal history of traumatic brain injury; Z87.442 Personal history of urinary calculi; Z83.3 Family history of diabetes mellitus; Z82.49 Family history of ischemic heart disease and other diseases of the circulatory system; Z68.42 Body mass index [BMI] 45.0-49.9, adult; Z79.84 Long term (current) use of oral hypoglycemic drugs
CPT/HCPCS: 36415; 36600; 71045; 74176; 74430; 76700; 80048; 80202; 82010; 82247; 82270; 82330; 82375; 82550; 82607; 82728; 82746; 82805; 82962; 83540; 83550; 83605; 83615; 83735; 83880; 84100; 84145; 84484; 85044; 86705; 86709; 86803; 87077; 87186; 87340; 87389; 92610; 93005; 93306; 93970; 96374; 99285; A6261; C1769; C1893; C2617; J0692; J1650; J1720; J1815; J2185; J2250; J2405; J2543; J2704; J2765; J3010; J3370; J3475; J3480; J3490; J7030; J7042; J7050; J7060; J7070; Q9966; A4315